=== PATIENT | female | born 1965 | race African-American/Black ===

== ENCOUNTER 2021-09-26 16:53 | Emergency (ER) | payer MEDICAID ==
[~2021-09-26] VITALS: Ht 157.5 cm; Wt 69.0 kg
[~2021-09-26 16:53] MED LIST: AMLO10TA80 MT; AMLO10TA80 PO; ASPI-1497 MT; CLON0.2T PO; CLON0.2T12 PO; GABA800T97 MT; LOSA100T3 PO; METF500T PO; OXYC-105 MT; P20 MT
[2021-09-26] MEDS ORDERED: HYDROCODONE/ACETAMINOPHEN 5/325MG TABLET PO ONE (17:45)
[2021-09-26 17:58] LABS: BASOPHILS % 0.8 % (0.0-2.0); EOSINOPHILS % 0.9 % (0.0-5.0); HEMATOCRIT. 32.6 % (36.0-48.0); HEMOGLOBIN. 10.6 g/dL (12.0-16.0); LYMPHOCYTES % 17.6 % (20.0-50.0); MEAN CORPUSCULAR HEMOGLOBIN 24.4 pg (28.0-32.0); MEAN CORPUSCULAR VOLUME 75.4 fL (81.0-99.0); MONOCYTES % 6.7 % (2.0-8.0); PLATELET 217 x1000/uL (130-400); RED BLOOD CELL COUNT 4.32 mill/uL (4.2-5.4); RED CELL DISTRIBUTION WIDTH 20.3 % (11.6-14.6)
[2021-09-26 18:03] LABS: CHLORIDE 104 mEq/L (98-107)
[2021-09-26] MEDS ORDERED: KETOROLAC 30MG/ML VIAL IV ONE (21:00)
[2021-09-26 23:03] VITALS: BP 142/68
== END 2021-09-26 23:05 | disposition home or self-care (01) ==
LOC: ER 16:53
DX: R07.89 Other chest pain (principal); I25.10 Atherosclerotic heart disease of native coronary artery without angina pectoris; I69.351 Hemiplegia and hemiparesis following cerebral infarction affecting right dominant side; Z95.5 Presence of coronary angioplasty implant and graft; Z86.03 Personal history of neoplasm of uncertain behavior; Z98.890 Other specified postprocedural states; Z88.8 Allergy status to other drugs, medicaments and biological substances; Z88.0 Allergy status to penicillin
CPT/HCPCS: 36415; 71045; 80053; 83880; 84484; 85025; 93005; 96374; 99285; J1885

== ENCOUNTER 2022-01-12 09:17 | Inpatient (IN) | payer MEDICAID ==
[~2022-01-12] VITALS: Ht 167.6 cm; Wt 65.8 kg
[~2022-01-12 09:17] MED LIST changes: -CLON0.2T PO; +CYCL5TAB PO
[2022-01-12] MEDS ORDERED: SODIUM CHLORIDE 0.9% 1,000 ML IV ONE (09:45)
[2022-01-12 10:36] LABS: BASOPHILS % 0.3 % (0.0-2.0); EOSINOPHILS % 0.1 % (0.0-5.0); HEMATOCRIT. 47.1 % (36.0-48.0); LYMPHOCYTES % 7.1 % (20.0-50.0); MEAN CORPUSCULAR HEMOGLOBIN 27.1 pg (28.0-32.0); MEAN CORPUSCULAR VOLUME 85.3 fL (81.0-99.0); MEAN PLATELET VOLUME 9.1 fl (7.4-10.4); MONOCYTES % 4.5 % (2.0-8.0); PLATELET 270 x1000/uL (130-400); RED BLOOD CELL COUNT 5.52 mill/uL (4.2-5.4); RED CELL DISTRIBUTION WIDTH 17.1 % (11.6-14.6)
[2022-01-12 10:43] LABS: CHLORIDE 102 mEq/L (98-107)
[2022-01-12 10:47] LABS: ETHANOL BLOOD < 10 mg/dL
[2022-01-12] MEDS ORDERED: POTASSIUM CHLORIDE 20MEQ TABLET SR PO ONE (12:30)
[2022-01-12] MEDS ORDERED: ACETAMINOPHEN WITH CODEINE 300/30MG TABLET PO ONE (14:00)
[2022-01-12] MEDS ORDERED: ONDANSETRON HCL 4MG/2ML INJ IV PRN (16:00)
[2022-01-12] MEDS ORDERED: HYDROCODONE/ACETAMINOPHEN 5/325MG TABLET PO PRN (16:00)
[2022-01-12] MEDS ORDERED: CLONIDINE 0.1MG TABLET PO PRN (16:00)
[2022-01-12] MEDS ORDERED: MAGNESIUM/ALUMINUM HYDROXIDE/SIMETHICONE 30ML UDC PO PRN (16:00)
[2022-01-12] MEDS ORDERED: ACETAMINOPHEN 325MG TABLET PO PRN (16:00)
[2022-01-12] MEDS ORDERED: GUAIFENESIN 200MG/10ML SUGAR FREE UDC PO PRN (16:00)
[2022-01-12] MEDS: ENOXAPARIN 40MG/0.4ML SYR SUBCUT SCH (16:33)
[2022-01-12] MEDS: SODIUM CHLORIDE 0.9% 1,000 ML IV SCH (16:39)
[2022-01-12 17:58] VITALS: BP 151/88
[2022-01-12 18:26] VITALS: BP 151/88
[2022-01-12] MEDS ORDERED: NALOXONE HCL 0.4MG/ML VIAL IV PRN (19:15)
[2022-01-12 20:00] VITALS: BP 121/69
[2022-01-12] MEDS: HYDROCODONE/ACETAMINOPHEN 10/325MG TABLET PO PRN (21:19)
[2022-01-12] MEDS ORDERED: DEXTROSE 50% WATER 50ML SYRINGE IV PRN (21:30)
[2022-01-12] MEDS ORDERED: DIPHENHYDRAMINE 25MG CAPSULE PO PRN (22:00)
[2022-01-12] MEDS ORDERED: PIPERACILLIN/TAZOBACTAM 3.375 G in DEXTROSE 5% WATER 50 ML IV SCH (22:00)
[2022-01-12] MEDS: GABAPENTIN 400MG CAPSULE PO SCH (22:24)
[2022-01-12] MEDS: CYCLOBENZAPRINE 10MG TABLET PO SCH (22:24)
[2022-01-12] MEDS: INSULIN GLARGINE 100 UNITS/ML SUBCUT SCH (22:29)
[2022-01-12] MEDS ORDERED: VANCOMYCIN 1.5GM PMX (XELLIA) 300 ML IV NR (23:00)
[2022-01-12] MEDS ORDERED: CEFEPIME 1,000 MG in DEXTROSE 5% WATER 50 ML IV SCH (23:00)
[2022-01-12] MEDS: KETOROLAC 15MG/ML VIAL IV PRN (23:37)
[2022-01-13] VITALS: BP 141/78
[2022-01-13] MEDS: SODIUM CHLORIDE 0.9% 1,000 ML IV SCH (01:52)
[2022-01-13 02:57] LABS: CLARITY URINE CLEAR (CLEAR); COLOR URINE YELLOW (YELLOW); KETONES URINE TRACE (NEGATIVE); LEUKOCYTE ESTERASE URINE TRACE (NEGATIVE); NITRITE URINE NEGATIVE (NEGATIVE); OCCULT BLOOD URINE NEGATIVE (NEGATIVE); PH URINE 5.5 (4.5-8.0); PROTEIN URINE TRACE (NEGATIVE)
[2022-01-13 03:09] LABS: *AMPHETAMINES SCREEN URINE NEGATIVE (NEGATIVE); *BARBITURATES SCREEN URINE NEGATIVE (NEGATIVE)
[2022-01-13 03:10] LABS: *BENZODIAZEPINES SCREEN URINE NEGATIVE (NEGATIVE); *COCAINE SCREEN URINE NEGATIVE (NEGATIVE); CANNABINOID URINE SCREEN NEGATIVE (NEGATIVE); METHADONE URINE SCREEN NEGATIVE (NEGATIVE); OPIATES URINE SCREEN PRESUMTIVE POSITIVE (NEGATIVE); PHENCYCLIDINE URINE SCREEN NEGATIVE (NEGATIVE)
[2022-01-13 04:00] VITALS: BP 131/73
[2022-01-13] MEDS: HYDROCODONE/ACETAMINOPHEN 10/325MG TABLET PO PRN ×2 (04:44→22:52)
[2022-01-13] MEDS: BLOOD SUGAR DIAGNOSTIC STRIP TEST SCH ×4 (06:19→21:59)
[2022-01-13] MEDS: CYCLOBENZAPRINE 10MG TABLET PO SCH ×3 (06:30→22:04)
[2022-01-13] MEDS: GABAPENTIN 400MG CAPSULE PO SCH ×3 (06:30→22:03)
[2022-01-13] MEDS: KETOROLAC 15MG/ML VIAL IV PRN (06:31)
[2022-01-13] MEDS: INSULIN LISPRO 100 UNITS/ML SUBCUT SCH ×5 (06:46→21:00)
[2022-01-13 07:24] LABS: BASOPHILS % 0.7 % (0.0-2.0); EOSINOPHILS % 1.2 % (0.0-5.0); HEMOGLOBIN. 11.7 g/dL (12.0-16.0); LYMPHOCYTES % 30.5 % (20.0-50.0); MEAN CORPUSCULAR HEMOGLOBIN 27.6 pg (28.0-32.0); MEAN CORPUSCULAR VOLUME 85.2 fL (81.0-99.0); MEAN PLATELET VOLUME 9.4 fl (7.4-10.4); MONOCYTES % 6.8 % (2.0-8.0); NEUTROPHILS % 60.8 % (40.0-76.0); PLATELET 215 x1000/uL (130-400); RED BLOOD CELL COUNT 4.22 mill/uL (4.2-5.4); RED CELL DISTRIBUTION WIDTH 16.9 % (11.6-14.6)
[2022-01-13 08:00] VITALS: BP 142/77
[2022-01-13] MEDS: CLONIDINE 0.2MG TABLET PO SCH ×2 (08:54→16:53)
[2022-01-13] MEDS ORDERED: LORAZEPAM 0.5MG TABLET PO PRN (09:45)
[2022-01-13] MEDS ORDERED: LORAZEPAM 0.5MG TABLET PO NR (09:48)
[2022-01-13] MEDS ORDERED: GADOTERATE MEGLUMINE 5 MMOL/10 ML VIAL IV ONE ×2 (10:43→11:00)
[2022-01-13 12:00] VITALS: BP 125/63
[2022-01-13 16:00] VITALS: BP 123/70
[2022-01-13] MEDS: ENOXAPARIN 40MG/0.4ML SYR SUBCUT SCH (16:48)
[2022-01-13] MEDS ORDERED: VANCOMYCIN 750MG PMX (XELLIA) 150 ML IV SCH (18:00)
[2022-01-13 20:00] VITALS: BP 101/61
[2022-01-13] MEDS: INSULIN GLARGINE 100 UNITS/ML SUBCUT SCH (22:05)
[2022-01-13] MEDS ORDERED: VANCOMYCIN 1GM PMX (XELLIA) 200 ML IV SCH (23:00)
[2022-01-14] VITALS: BP 105/55
[2022-01-14 04:00] VITALS: BP 97/59
[2022-01-14] MEDS: CYCLOBENZAPRINE 10MG TABLET PO SCH ×3 (05:29→21:34)
[2022-01-14] MEDS: GABAPENTIN 400MG CAPSULE PO SCH ×3 (05:29→21:34)
[2022-01-14] MEDS: BLOOD SUGAR DIAGNOSTIC STRIP TEST SCH ×4 (05:31→21:34)
[2022-01-14] MEDS: INSULIN LISPRO 100 UNITS/ML SUBCUT SCH ×4 (05:31→21:38)
[2022-01-14 07:55] LABS: BASOPHILS % 0.8 % (0.0-2.0); EOSINOPHILS % 4.3 % (0.0-5.0); HEMATOCRIT. 34.1 % (36.0-48.0); HEMOGLOBIN. 11.3 g/dL (12.0-16.0); LYMPHOCYTES % 29.1 % (20.0-50.0); MEAN CORPUSCULAR HEMOGLOBIN 27.7 pg (28.0-32.0); MEAN CORPUSCULAR VOLUME 83.5 fL (81.0-99.0); MEAN PLATELET VOLUME 9.4 fl (7.4-10.4); MONOCYTES % 5.6 % (2.0-8.0); NEUTROPHILS % 60.2 % (40.0-76.0); PLATELET 213 x1000/uL (130-400); RED BLOOD CELL COUNT 4.08 mill/uL (4.2-5.4); RED CELL DISTRIBUTION WIDTH 16.4 % (11.6-14.6)
[2022-01-14 08:00] VITALS: BP 129/69
[2022-01-14 08:05] LABS: CHLORIDE 109 mEq/L (98-107)
[2022-01-14] MEDS: CLONIDINE 0.2MG TABLET PO SCH ×2 (08:29→15:47)
[2022-01-14] MEDS: HYDROCODONE/ACETAMINOPHEN 10/325MG TABLET PO PRN (08:31)
[2022-01-14] MEDS: KETOROLAC 15MG/ML VIAL IV PRN ×2 (09:56→20:29)
[2022-01-14] MEDS ORDERED: POTASSIUM CHLORIDE 20MEQ TABLET SR PO NR (10:45)
[2022-01-14 12:00] VITALS: BP 99/53
[2022-01-14] MEDS ORDERED: POTASSIUM CHLORIDE 20MEQ/PACKET PO NR (14:53)
[2022-01-14] MEDS: ENOXAPARIN 40MG/0.4ML SYR SUBCUT SCH (15:21)
[2022-01-14] MEDS ORDERED: MORPHINE SULFATE 2 MG/ML CPJ (NOT FOR IM USE) IV NR (15:30)
[2022-01-14] MEDS: ACETAMINOPHEN 325MG TABLET PO PRN (15:59)
[2022-01-14 16:00] VITALS: BP 97/53
[2022-01-14 20:00] VITALS: BP 112/57
[2022-01-14] MEDS: INSULIN GLARGINE 100 UNITS/ML SUBCUT SCH (21:38)
[2022-01-14] MEDS ORDERED: BACLOFEN 10MG TABLET PO SCH (22:00)
[2022-01-14] MEDS: LIDOCAINE 5% PATCH TOP SCH (23:14)
[2022-01-14] MEDS: MORPHINE SULFATE 2 MG/ML CPJ (NOT FOR IM USE) IV PRN (23:14)
[2022-01-14] MEDS: ACETAMINOPHEN 325MG TABLET PO SCH (23:15)
[2022-01-14] MEDS: SENNOSIDES/DOCUSATE SOD 8.6/50MG TABLET PO SCH (23:15)
[2022-01-15] VITALS: BP 122/67
[2022-01-15] MEDS: DULOXETINE HCL 30MG DR CAPSULE PO SCH ×2 (01:33→11:26)
[2022-01-15] MEDS: SENNOSIDES/DOCUSATE SOD 8.6/50MG TABLET PO SCH ×3 (01:33→17:56)
[2022-01-15 04:00] VITALS: BP 142/67
[2022-01-15] MEDS: BLOOD SUGAR DIAGNOSTIC STRIP TEST SCH ×4 (06:10→21:00)
[2022-01-15] MEDS: BACLOFEN 10MG TABLET PO SCH ×3 (06:13→22:17)
[2022-01-15] MEDS: MORPHINE SULFATE 2 MG/ML CPJ (NOT FOR IM USE) IV PRN (06:13)
[2022-01-15] MEDS: ACETAMINOPHEN 325MG TABLET PO SCH ×3 (06:13→22:17)
[2022-01-15] MEDS: INSULIN LISPRO 100 UNITS/ML SUBCUT SCH ×4 (06:14→22:19)
[2022-01-15] MEDS: IBUPROFEN 400MG TABLET PO SCH ×3 (06:45→17:55)
[2022-01-15 08:00] VITALS: BP 151/77
[2022-01-15 08:40] LABS: BASOPHILS % 0.7 % (0.0-2.0); EOSINOPHILS % 5.3 % (0.0-5.0); HEMATOCRIT. 34.2 % (36.0-48.0); LYMPHOCYTES % 29.2 % (20.0-50.0); MEAN CORPUSCULAR HEMOGLOBIN 27.5 pg (28.0-32.0); MEAN CORPUSCULAR VOLUME 85.8 fL (81.0-99.0); MEAN PLATELET VOLUME 9.3 fl (7.4-10.4); MONOCYTES % 6.4 % (2.0-8.0); NEUTROPHILS % 58.4 % (40.0-76.0); PLATELET 210 x1000/uL (130-400); RED BLOOD CELL COUNT 3.98 mill/uL (4.2-5.4); RED CELL DISTRIBUTION WIDTH 16.5 % (11.6-14.6)
[2022-01-15] MEDS: CLONIDINE 0.2MG TABLET PO SCH ×2 (11:30→17:53)
[2022-01-15] MEDS: POLYETHYLENE GLYCOL 3350 (17GM) 1 DOSE PACK PO SCH (11:31)
[2022-01-15 12:00] VITALS: BP 147/75
[2022-01-15] MEDS ORDERED: DEXAMETHASONE 10 MG/ML VIAL IV NR (12:00)
[2022-01-15] MEDS ORDERED: LORAZEPAM 2MG/ML CPJ IV PRN (13:45)
[2022-01-15 14:03] LABS: CHLORIDE 110 mEq/L (98-107)
[2022-01-15 14:12] LABS: HDL CHOLESTEROL 35 mg/dL (40-59); LDL CHOLESTEROL 79 mg/dL (5-100); PHOSPHORUS 3.9 mg/dL (2.5-4.9)
[2022-01-15] MEDS ORDERED: GADOTERATE MEGLUMINE 5 MMOL/10 ML VIAL IV ONE (15:27)
[2022-01-15 16:00] VITALS: BP 138/77
[2022-01-15] MEDS: ENOXAPARIN 40MG/0.4ML SYR SUBCUT SCH (17:52)
[2022-01-15 20:00] VITALS: BP 145/85
[2022-01-15] MEDS: INSULIN GLARGINE 100 UNITS/ML SUBCUT SCH (22:20)
[2022-01-15] MEDS: LIDOCAINE 5% PATCH TOP SCH (22:21)
[2022-01-15 23:12] LABS: HEMOGLOBIN. 12.5 g/dL (12.0-16.0); MEAN CORPUSCULAR HEMOGLOBIN 27.7 pg (28.0-32.0); MEAN CORPUSCULAR VOLUME 84.2 fL (81.0-99.0); MEAN PLATELET VOLUME 8.6 fl (7.4-10.4); PLATELET 238 x1000/uL (130-400); RED BLOOD CELL COUNT 4.51 mill/uL (4.2-5.4); RED CELL DISTRIBUTION WIDTH 16.6 % (11.6-14.6)
[2022-01-15 23:23] LABS: CHLORIDE 111 mEq/L (98-107)
[2022-01-15 23:25] LABS: D-DIMER 0.76 mg/L FEU (<0.50); PROTHROMBIN TIME 10.4 sec (9.6-11.0)
[2022-01-15 23:32] LABS: CREATINE KINASE 26 IU/L (26-192); CREATINE KINASE MB FRACTION 1.1 ng/mL (0.5-3.6); HDL CHOLESTEROL 46 mg/dL (40-59); LDL CHOLESTEROL 122 mg/dL (5-100)
[2022-01-15 23:41] LABS: PLATELET ESTIMATE NORMAL
[2022-01-16] VITALS: BP 150/75
[2022-01-16 04:00] VITALS: BP 149/79
[2022-01-16] MEDS: ACETAMINOPHEN 325MG TABLET PO SCH ×4 (05:47→22:51)
[2022-01-16] MEDS: BACLOFEN 10MG TABLET PO SCH ×3 (05:47→22:50)
[2022-01-16] MEDS: INSULIN LISPRO 100 UNITS/ML SUBCUT SCH ×4 (06:26→21:00)
[2022-01-16] MEDS: BLOOD SUGAR DIAGNOSTIC STRIP TEST SCH ×4 (06:27→21:00)
[2022-01-16] MEDS: IBUPROFEN 400MG TABLET PO SCH ×3 (07:40→17:33)
[2022-01-16 08:00] VITALS: BP 178/94
[2022-01-16] MEDS: CLONIDINE 0.2MG TABLET PO SCH ×3 (08:26→17:00)
[2022-01-16] MEDS ORDERED: HYDRALAZINE 20MG/ML VIAL IV NR (08:45)
[2022-01-16] MEDS: POLYETHYLENE GLYCOL 3350 (17GM) 1 DOSE PACK PO SCH (09:00)
[2022-01-16] MEDS: SENNOSIDES/DOCUSATE SOD 8.6/50MG TABLET PO SCH ×2 (09:00→17:00)
[2022-01-16] MEDS: DULOXETINE HCL 30MG DR CAPSULE PO SCH (09:00)
[2022-01-16 12:00] VITALS: BP 177/84
[2022-01-16 16:00] VITALS: BP 176/91
[2022-01-16] MEDS: ENOXAPARIN 40MG/0.4ML SYR SUBCUT SCH (16:00)
[2022-01-16] MEDS ORDERED: CLONIDINE 0.2MG TABLET PO PRN (19:45)
[2022-01-16 20:00] VITALS: BP 171/89
[2022-01-16] MEDS: SODIUM CHLORIDE 0.9% 1,000 ML IV SCH (20:00)
[2022-01-16] MEDS: INSULIN GLARGINE 100 UNITS/ML SUBCUT SCH (22:00)
[2022-01-16] MEDS: LIDOCAINE 5% PATCH TOP SCH ×2 (22:50→23:12)
[2022-01-16] MEDS: LEVETIRACETAM 500MG TABLET PO SCH ×2 (22:51→23:04)
[2022-01-17] VITALS: BP 137/71
[2022-01-17 04:00] VITALS: BP 140/83
[2022-01-17] MEDS: ACETAMINOPHEN 325MG TABLET PO SCH ×5 (06:00→22:00)
[2022-01-17] MEDS: BACLOFEN 10MG TABLET PO SCH ×4 (06:43→22:00)
[2022-01-17] MEDS: BLOOD SUGAR DIAGNOSTIC STRIP TEST SCH ×4 (06:45→21:43)
[2022-01-17] MEDS: INSULIN LISPRO 100 UNITS/ML SUBCUT SCH ×4 (06:45→21:00)
[2022-01-17] MEDS: SODIUM CHLORIDE 0.9% 1,000 ML IV SCH (06:51)
[2022-01-17] MEDS: IBUPROFEN 400MG TABLET PO SCH ×5 (07:40→16:41)
[2022-01-17 08:01] LABS: BASOPHILS % 0.3 % (0.0-2.0); EOSINOPHILS % 1.3 % (0.0-5.0); LYMPHOCYTES % 23.7 % (20.0-50.0); MEAN CORPUSCULAR HEMOGLOBIN 27.9 pg (28.0-32.0); MEAN PLATELET VOLUME 8.9 fl (7.4-10.4); MONOCYTES % 5.2 % (2.0-8.0); NEUTROPHILS % 69.5 % (40.0-76.0); PLATELET 252 x1000/uL (130-400); RED BLOOD CELL COUNT 4.29 mill/uL (4.2-5.4); RED CELL DISTRIBUTION WIDTH 16.4 % (11.6-14.6)
[2022-01-17 08:09] LABS: CHLORIDE 112 mEq/L (98-107)
[2022-01-17] MEDS: DULOXETINE HCL 30MG DR CAPSULE PO SCH ×2 (08:49→09:00)
[2022-01-17] MEDS: LEVETIRACETAM 500MG TABLET PO SCH ×4 (08:50→21:45)
[2022-01-17] MEDS: CLONIDINE 0.2MG TABLET PO SCH ×4 (08:50→16:40)
[2022-01-17] MEDS: SENNOSIDES/DOCUSATE SOD 8.6/50MG TABLET PO SCH ×4 (08:50→16:40)
[2022-01-17] MEDS: POLYETHYLENE GLYCOL 3350 (17GM) 1 DOSE PACK PO SCH ×2 (08:51→09:00)
[2022-01-17] MEDS ORDERED: LIDOCAINE HCL 1% 20ML VIAL (Pyxis) INJ ONE (09:28)
[2022-01-17] MEDS ORDERED: POTASSIUM CHLORIDE INJ 40 MEQ in DEXT 5% WATER 250 ML IV ONE (10:30)
[2022-01-17] MEDS: KCL 20MEQ/100ML X 2 FOR TOTAL KCL 40MEQ/200ML IV SCH ×2 (11:31→13:29)
[2022-01-17 11:45] VITALS: BP 150/55
[2022-01-17] MEDS: ENOXAPARIN 40MG/0.4ML SYR SUBCUT SCH (15:57)
[2022-01-17 16:00] VITALS: BP 152/83
[2022-01-17 20:00] VITALS: BP 157/58
[2022-01-17] MEDS: LIDOCAINE 5% PATCH TOP SCH ×2 (21:47→22:30)
[2022-01-17] MEDS: INSULIN GLARGINE 100 UNITS/ML SUBCUT SCH (22:00)
[2022-01-18] VITALS (7 sets, daily range): BP systolic 118–180; BP diastolic 66–95
[2022-01-18] MEDS: HYDRALAZINE 20MG/ML VIAL IV PRN ×2 (00:41→04:57)
[2022-01-18] MEDS: SODIUM CHLORIDE 0.9% 1,000 ML IV SCH ×3 (02:14→21:54)
[2022-01-18] MEDS: MORPHINE SULFATE 2 MG/ML CPJ (NOT FOR IM USE) IV PRN (02:28)
[2022-01-18] MEDS: ACETAMINOPHEN 325MG TABLET PO SCH ×3 (05:04→21:52)
[2022-01-18] MEDS: BACLOFEN 10MG TABLET PO SCH ×3 (05:04→21:52)
[2022-01-18] MEDS: BLOOD SUGAR DIAGNOSTIC STRIP TEST SCH ×4 (06:02→21:41)
[2022-01-18 06:55] LABS: BASOPHILS % 0.5 % (0.0-2.0); EOSINOPHILS % 1.2 % (0.0-5.0); HEMATOCRIT. 40.7 % (36.0-48.0); HEMOGLOBIN. 13.5 g/dL (12.0-16.0); LYMPHOCYTES % 25.8 % (20.0-50.0); MEAN CORPUSCULAR HEMOGLOBIN 27.9 pg (28.0-32.0); MEAN CORPUSCULAR VOLUME 84.1 fL (81.0-99.0); MEAN PLATELET VOLUME 9.7 fl (7.4-10.4); NEUTROPHILS % 64.5 % (40.0-76.0); PLATELET 270 x1000/uL (130-400); RED BLOOD CELL COUNT 4.84 mill/uL (4.2-5.4); RED CELL DISTRIBUTION WIDTH 16.6 % (11.6-14.6)
[2022-01-18] MEDS: INSULIN LISPRO 100 UNITS/ML SUBCUT SCH ×7 (07:10→21:55)
[2022-01-18 07:53] LABS: CHLORIDE 112 mEq/L (98-107)
[2022-01-18] MEDS: LEVETIRACETAM 500MG TABLET PO SCH ×3 (08:41→21:52)
[2022-01-18] MEDS: POLYETHYLENE GLYCOL 3350 (17GM) 1 DOSE PACK PO SCH ×2 (08:42→09:00)
[2022-01-18] MEDS: DULOXETINE HCL 30MG DR CAPSULE PO SCH ×2 (08:42→09:00)
[2022-01-18] MEDS: IBUPROFEN 400MG TABLET PO SCH ×4 (08:42→17:40)
[2022-01-18] MEDS: CLONIDINE 0.2MG TABLET PO SCH ×2 (08:42→17:00)
[2022-01-18] MEDS: SENNOSIDES/DOCUSATE SOD 8.6/50MG TABLET PO SCH ×3 (08:42→17:00)
[2022-01-18] MEDS: ENOXAPARIN 40MG/0.4ML SYR SUBCUT SCH (16:00)
[2022-01-18] MEDS: LIDOCAINE 5% PATCH TOP SCH (21:53)
[2022-01-18] MEDS: INSULIN GLARGINE 100 UNITS/ML SUBCUT SCH (22:00)
[2022-01-18] MEDS ORDERED: POTASSIUM CHLORIDE 20MEQ/PACKET PO NR (22:11)
[2022-01-19] VITALS: BP 137/82
[2022-01-19 04:00] VITALS: BP 149/78
[2022-01-19] MEDS: BACLOFEN 10MG TABLET PO SCH ×3 (06:19→21:35)
[2022-01-19] MEDS: ACETAMINOPHEN 325MG TABLET PO SCH ×3 (06:19→21:36)
[2022-01-19] MEDS: BLOOD SUGAR DIAGNOSTIC STRIP TEST SCH ×4 (06:20→21:27)
[2022-01-19] MEDS: INSULIN LISPRO 100 UNITS/ML SUBCUT SCH ×7 (06:23→21:00)
[2022-01-19 07:15] LABS: BASOPHILS % 0.8 % (0.0-2.0); EOSINOPHILS % 2.1 % (0.0-5.0); HEMATOCRIT. 35.4 % (36.0-48.0); HEMOGLOBIN. 11.7 g/dL (12.0-16.0); LYMPHOCYTES % 27.7 % (20.0-50.0); MEAN CORPUSCULAR HEMOGLOBIN 27.6 pg (28.0-32.0); MEAN CORPUSCULAR VOLUME 83.8 fL (81.0-99.0); MEAN PLATELET VOLUME 9.1 fl (7.4-10.4); NEUTROPHILS % 61.4 % (40.0-76.0); PLATELET 235 x1000/uL (130-400); RED BLOOD CELL COUNT 4.22 mill/uL (4.2-5.4); RED CELL DISTRIBUTION WIDTH 16.3 % (11.6-14.6)
[2022-01-19 07:32] LABS: CHLORIDE 117 mEq/L (98-107)
[2022-01-19] MEDS: IBUPROFEN 400MG TABLET PO SCH ×3 (07:35→17:31)
[2022-01-19 07:37] LABS: PHOSPHORUS 3.2 mg/dL (2.5-4.9)
[2022-01-19 08:00] VITALS: BP 139/77
[2022-01-19] MEDS ORDERED: LIDOCAINE HCL 1% 20ML VIAL (Pyxis) INJ ONE (08:05)
[2022-01-19] MEDS: DULOXETINE HCL 30MG DR CAPSULE PO SCH (09:00)
[2022-01-19] MEDS: CLONIDINE 0.2MG TABLET PO SCH ×2 (09:00→17:30)
[2022-01-19] MEDS: POLYETHYLENE GLYCOL 3350 (17GM) 1 DOSE PACK PO SCH (09:00)
[2022-01-19] MEDS: SENNOSIDES/DOCUSATE SOD 8.6/50MG TABLET PO SCH ×3 (09:00→17:30)
[2022-01-19] MEDS: LEVETIRACETAM 500MG TABLET PO SCH ×2 (09:00→21:35)
[2022-01-19] MEDS: SODIUM CHLORIDE 0.9% 1,000 ML IV SCH ×2 (10:53→21:35)
[2022-01-19] MEDS: MORPHINE SULFATE 2 MG/ML CPJ (NOT FOR IM USE) IV PRN (10:54)
[2022-01-19 11:03] LABS: GLUCOSE CSF 97 mg/dL (41-75)
[2022-01-19 12:13] VITALS: BP 144/83
[2022-01-19 16:30] VITALS: BP 167/79
[2022-01-19] MEDS: ENOXAPARIN 40MG/0.4ML SYR SUBCUT SCH (17:30)
[2022-01-19 20:00] VITALS: BP 125/76
[2022-01-19] MEDS: LIDOCAINE 5% PATCH TOP SCH (21:35)
[2022-01-19] MEDS: INSULIN GLARGINE 100 UNITS/ML SUBCUT SCH (21:36)
[2022-01-19] MEDS ORDERED: MORPHINE SULFATE 2 MG/ML CPJ (NOT FOR IM USE) IV NR (23:30)
[2022-01-20] VITALS: BP 143/67
[2022-01-20 04:00] VITALS: BP 137/67
[2022-01-20] MEDS: BACLOFEN 10MG TABLET PO SCH ×6 (05:39→20:23)
[2022-01-20] MEDS: SODIUM CHLORIDE 0.9% 1,000 ML IV SCH ×2 (05:40→14:22)
[2022-01-20] MEDS: BLOOD SUGAR DIAGNOSTIC STRIP TEST SCH ×4 (05:45→20:24)
[2022-01-20] MEDS: INSULIN LISPRO 100 UNITS/ML SUBCUT SCH ×7 (05:45→20:24)
[2022-01-20] MEDS: ACETAMINOPHEN 325MG TABLET PO SCH ×6 (05:45→20:23)
[2022-01-20] MEDS: IBUPROFEN 400MG TABLET PO SCH ×3 (07:40→16:25)
[2022-01-20 08:00] VITALS: BP 146/74
[2022-01-20] MEDS: POLYETHYLENE GLYCOL 3350 (17GM) 1 DOSE PACK PO SCH ×2 (08:57→09:00)
[2022-01-20] MEDS: LEVETIRACETAM 500MG TABLET PO SCH ×3 (08:57→20:22)
[2022-01-20] MEDS: SENNOSIDES/DOCUSATE SOD 8.6/50MG TABLET PO SCH ×3 (08:57→16:25)
[2022-01-20] MEDS: CLONIDINE 0.2MG TABLET PO SCH ×3 (08:57→16:24)
[2022-01-20] MEDS: DULOXETINE HCL 30MG DR CAPSULE PO SCH ×2 (08:57→09:00)
[2022-01-20] MEDS: HYDRALAZINE 20MG/ML VIAL IV PRN ×2 (11:42→15:40)
[2022-01-20 12:00] VITALS: BP 173/83
[2022-01-20 16:00] VITALS: BP 176/87
[2022-01-20] MEDS: LACOSAMIDE 100 MG TABLET PO SCH ×2 (16:00→16:29)
[2022-01-20] MEDS: ENOXAPARIN 40MG/0.4ML SYR SUBCUT SCH (16:23)
[2022-01-20 20:00] VITALS: BP 169/80
[2022-01-20] MEDS: INSULIN GLARGINE 100 UNITS/ML SUBCUT SCH (20:25)
[2022-01-20] MEDS: LIDOCAINE 5% PATCH TOP SCH (20:27)
[2022-01-20] MEDS ORDERED: NALOXONE HCL 0.4MG/ML VIAL IV PRN (21:00)
[2022-01-20] MEDS: HYDROCODONE/ACETAMINOPHEN 5/325MG TABLET PO PRN (21:22)
[2022-01-20] MEDS: AMLODIPINE 10MG TABLET PO SCH (21:22)
[2022-01-21] VITALS: BP 153/63
[2022-01-21] MEDS: ACETAMINOPHEN 325MG TABLET PO PRN (01:13)
[2022-01-21] MEDS: HYDROCODONE/ACETAMINOPHEN 5/325MG TABLET PO PRN (02:27)
[2022-01-21 04:00] VITALS: BP 154/72
[2022-01-21] MEDS: SODIUM CHLORIDE 0.9% 1,000 ML IV SCH ×2 (04:31→10:54)
[2022-01-21] MEDS: BACLOFEN 10MG TABLET PO SCH ×3 (05:19→22:44)
[2022-01-21] MEDS: ACETAMINOPHEN 325MG TABLET PO SCH ×3 (05:19→22:44)
[2022-01-21] MEDS: BLOOD SUGAR DIAGNOSTIC STRIP TEST SCH ×4 (05:43→21:00)
[2022-01-21] MEDS: INSULIN LISPRO 100 UNITS/ML SUBCUT SCH ×7 (05:44→22:45)
[2022-01-21] MEDS: IBUPROFEN 400MG TABLET PO SCH ×3 (06:20→15:53)
[2022-01-21 08:00] VITALS: BP 140/67
[2022-01-21] MEDS: SENNOSIDES/DOCUSATE SOD 8.6/50MG TABLET PO SCH ×2 (08:21→15:54)
[2022-01-21] MEDS: DULOXETINE HCL 30MG DR CAPSULE PO SCH (08:21)
[2022-01-21] MEDS: LEVETIRACETAM 500MG TABLET PO SCH ×2 (08:22→22:43)
[2022-01-21] MEDS: AMLODIPINE 10MG TABLET PO SCH (08:22)
[2022-01-21] MEDS: LACOSAMIDE 100 MG TABLET PO SCH ×2 (08:22→15:52)
[2022-01-21] MEDS: POLYETHYLENE GLYCOL 3350 (17GM) 1 DOSE PACK PO SCH ×2 (08:22→08:26)
[2022-01-21 12:00] VITALS: BP 156/77
[2022-01-21] MEDS ORDERED: KETOROLAC 15MG/ML VIAL IV PRN (12:30)
[2022-01-21] MEDS ORDERED: DEXAMETHASONE 10 MG/ML VIAL IV NR (13:00)
[2022-01-21] MEDS: HYDRALAZINE 20MG/ML VIAL IV PRN (15:51)
[2022-01-21] MEDS: ENOXAPARIN 40MG/0.4ML SYR SUBCUT SCH (15:52)
[2022-01-21 16:00] VITALS: BP 178/86
[2022-01-21] MEDS ORDERED: LOSARTAN POTASSIUM 25 MG TABLET PO SCH (18:30)
[2022-01-21 20:00] VITALS: BP 166/80
[2022-01-21] MEDS: LIDOCAINE 5% PATCH TOP SCH (22:30)
[2022-01-21] MEDS: INSULIN GLARGINE 100 UNITS/ML SUBCUT SCH (22:46)
[2022-01-22] VITALS: BP 177/87
[2022-01-22] MEDS: SODIUM CHLORIDE 0.9% 1,000 ML IV SCH ×2 (02:36→05:23)
[2022-01-22 04:00] VITALS: BP 156/90
[2022-01-22] MEDS: ACETAMINOPHEN 325MG TABLET PO SCH ×3 (05:22→13:36)
[2022-01-22] MEDS: BACLOFEN 10MG TABLET PO SCH ×2 (05:22→13:34)
[2022-01-22] MEDS: INSULIN LISPRO 100 UNITS/ML SUBCUT SCH ×4 (06:15→12:33)
[2022-01-22] MEDS: BLOOD SUGAR DIAGNOSTIC STRIP TEST SCH ×2 (06:21→12:22)
[2022-01-22 07:41] LABS: BASOPHILS % 0.1 % (0.0-2.0); HEMATOCRIT. 40.4 % (36.0-48.0); HEMOGLOBIN. 13.4 g/dL (12.0-16.0); LYMPHOCYTES % 9.3 % (20.0-50.0); MEAN CORPUSCULAR HEMOGLOBIN 27.7 pg (28.0-32.0); MEAN CORPUSCULAR VOLUME 83.6 fL (81.0-99.0); MEAN PLATELET VOLUME 8.8 fl (7.4-10.4); MONOCYTES % 3.1 % (2.0-8.0); NEUTROPHILS % 87.5 % (40.0-76.0); PLATELET 283 x1000/uL (130-400); RED BLOOD CELL COUNT 4.83 mill/uL (4.2-5.4); RED CELL DISTRIBUTION WIDTH 16.5 % (11.6-14.6)
[2022-01-22 07:52] LABS: CHLORIDE 110 mEq/L (98-107)
[2022-01-22 08:00] VITALS: BP 160/84
[2022-01-22 08:00] LABS: PHOSPHORUS 3.6 mg/dL (2.5-4.9)
[2022-01-22] MEDS: POLYETHYLENE GLYCOL 3350 (17GM) 1 DOSE PACK PO SCH ×2 (08:21→08:30)
[2022-01-22] MEDS: HYDROCODONE/ACETAMINOPHEN 5/325MG TABLET PO PRN (08:21)
[2022-01-22] MEDS: LEVETIRACETAM 500MG TABLET PO SCH (08:21)
[2022-01-22] MEDS: DULOXETINE HCL 30MG DR CAPSULE PO SCH (08:22)
[2022-01-22] MEDS: LACOSAMIDE 100 MG TABLET PO SCH (08:22)
[2022-01-22] MEDS: AMLODIPINE 10MG TABLET PO SCH (08:22)
[2022-01-22] MEDS: IBUPROFEN 400MG TABLET PO SCH ×2 (08:22→12:19)
[2022-01-22] MEDS: SENNOSIDES/DOCUSATE SOD 8.6/50MG TABLET PO SCH (08:24)
[2022-01-22] MEDS ORDERED: POTASSIUM CHLORIDE INJ 40 MEQ in DEXT 5% WATER 250 ML IV ONE (09:30)
[2022-01-22 12:00] VITALS: BP 147/90
[2022-01-22] MEDS: KCL 20MEQ/100ML X 2 FOR TOTAL KCL 40MEQ/200ML IV SCH ×2 (12:19→13:31)
[2022-01-22] MEDS ORDERED: DEXAMETHASONE 4MG TABLET PO SCH (12:30)
[2022-01-22] MEDS ORDERED: DULO30CA2 PO (12:42)
[2022-01-22] MEDS ORDERED: BACL-141 PO (12:42)
[2022-01-22] MEDS ORDERED: KEPP500 PO (12:42)
[2022-01-22] MEDS ORDERED: POLY17PO3 PO (12:42)
[2022-01-22] MEDS ORDERED: TOPUD PO (12:42)
[2022-01-22] MEDS ORDERED: IBUP-2028 PO (12:42)
[2022-01-22] MEDS ORDERED: AMLO10TA80 PO (12:42)
[2022-01-22] MEDS ORDERED: LOSA100T3 PO (12:42)
[2022-01-22] MEDS ORDERED: HYDR-4001 PO (12:42)
[2022-01-22] MEDS ORDERED: SENN1TAB35 PO (12:42)
[2022-01-22] MEDS ORDERED: ASPI-1497 MT (12:42)
[2022-01-22] MEDS ORDERED: LACO100T2 PO (12:42)
[2022-01-22] MEDS ORDERED: BLOO-1812 MC (13:10)
[2022-01-22] MEDS ORDERED: INSU100I28 SQ (13:10)
[2022-01-22] MEDS ORDERED: CLON0.2T PO (13:12)
[2022-01-22] MEDS ORDERED: MED4 MT (13:15)
[2022-01-22] MEDS ORDERED: CLONIDINE 0.2MG TABLET PO SCH (14:00)
[2022-01-22 15:09] VITALS: BP 147/90
[2022-01-22] MEDS: ENOXAPARIN 40MG/0.4ML SYR SUBCUT SCH (16:00)
[2022-01-22 16:14] VITALS: BP 121/73
[2022-01-22] MEDS ORDERED: LOSARTAN POTASSIUM 50 MG TABLET PO SCH (21:00)
[2022-01-22] MEDS ORDERED: LOSARTAN POTASSIUM 100 MG TABLET PO SCH (21:00)
== END 2022-01-22 17:36 | disposition home or self-care (01) | DRG 720 ==
LOC: ER 09:17 → EDBEDREQ 12:31 → EDBEDREQTM 12:31 → 8WST 15:43 → EDBEDREQTM 15:45 → EDBEDREQ 15:45 → SUPCPDRO 15:48 → ENRESERV 16:38 → 8WST 23:06
PROVIDERS: ADMIT Internal Medicine; ATTEND Internal Medicine
PROC: 4A10X4Z Monitoring of Central Nervous Electrical Activity, External Approach (ICD-10-PCS; principal; 2022-01-15)
PROC: 02HV33Z Insertion of Infusion Device into Superior Vena Cava, Percutaneous Approach (ICD-10-PCS; 2022-01-17)
PROC: B548ZZA Ultrasonography of Superior Vena Cava, Guidance (ICD-10-PCS; 2022-01-17)
PROC: 009U3ZZ Drainage of Spinal Canal, Percutaneous Approach (ICD-10-PCS; 2022-01-19)
PROC: B01BZZZ Fluoroscopy of Spinal Cord (ICD-10-PCS; 2022-01-19)
DX: A41.9 Sepsis, unspecified organism (principal); N17.0 Acute kidney failure with tubular necrosis; G93.89 Other specified disorders of brain; I95.9 Hypotension, unspecified; I69.351 Hemiplegia and hemiparesis following cerebral infarction affecting right dominant side; R47.01 Aphasia; E11.65 Type 2 diabetes mellitus with hyperglycemia; Z20.822 Contact with and (suspected) exposure to COVID-19; I10 Essential (primary) hypertension; I25.2 Old myocardial infarction; Z81.0 Family history of intellectual disabilities; Z88.0 Allergy status to penicillin; Z88.8 Allergy status to other drugs, medicaments and biological substances; Z79.899 Other long term (current) drug therapy; Z79.891 Long term (current) use of opiate analgesic; Z79.82 Long term (current) use of aspirin; Z79.4 Long term (current) use of insulin; R53.1 Weakness; R42 Dizziness and giddiness
CPT/HCPCS: 36415; 62328; 70496; 70498; 70551; 70552; 71045; 72141; 72142; 72146; 72147; 72148; 76937; 80048; 80053; 80061; 80076; 80305; 80320; 80339; 81003; 82140; 82550; 82553; 82945; 82962; 83036; 83735; 83880; 84100; 84145; 84157; 84484; 85025; 85379; 85384; 87070; 87426; 93005; 93880; 95816; 97162; 97166; 99291; A9577; C1725; J0360; J0692; J1100; J1650; J1815; J1885; J2270; J3370; J3480; J3490; J7030; J7060; J8540; Q0163; G0480